=== PATIENT | female | born 1945 | race Caucasian/White ===

== ENCOUNTER 2020-08-24 05:15 | Day surgery (SDC) | payer OTHER ==
[~2020-08-24 05:15] MED LIST: COZAAR50 MG PO; SYNTHROID50 MCG PO
[2020-08-24] MEDS ORDERED: ULTRACET PO (08:54)
[2020-08-24] MEDS ORDERED: MACROBID 100 M100 MG PO (08:55)
== END 2020-08-24 12:55 | disposition home or self-care (01) ==
LOC: CIR.AMB 05:15
PROVIDERS: ATTEND Obstetrics & Gynecology Gynecology
DX: N81.3 Complete uterovaginal prolapse (principal); Z20.822 Contact with and (suspected) exposure to COVID-19